=== PATIENT | female | born 1970 | race Caucasian/White ===

== ENCOUNTER 2017-07-29 14:19 | Outpatient (CLI) | payer OTHER | END 2017-07-29 14:20 | disposition home or self-care (01) | LOC: BICMAMMO 14:19 | PROVIDERS: ATTEND Family Medicine | DX: Z12.31 Encounter for screening mammogram for malignant neoplasm of breast (principal) | CPT/HCPCS: 77063; 77067 ==

== ENCOUNTER 2019-07-02 14:23 | Outpatient (CLI) | payer OTHER ==
--- NOTE | 2019-07-02 17:14 | ULT ---
LIMITED RIGHT BREAST ULTRASOUND: Date: 07/02/2019 PROVIDED CLINICAL HISTORY: Abnormal mammogram. FINDINGS: Limited sonographic interrogation was performed of the right breast in the region of mammographic con cern. There is a circumscribed, oval, wider than tall, predominantly anechoic mass at the 10 o'clock position of the right breast. This demonstrates mild internal complexity. This measures approximately 8.0 mm in greatest dimension. IMPRESSION: BI-RADS Category 3 - Probably benign findings. 6 month follow-up right breast ultrasound recommended. Findings and recommendations discussed with the patient and questions answered. POS: OFF
== END 2019-07-02 14:24 | disposition home or self-care (01) ==
LOC: BICMAMMO 14:23
PROVIDERS: ATTEND Advanced Practice Midwife
DX: R92.2 Inconclusive mammogram (principal)
CPT/HCPCS: G0279